=== PATIENT | female | born 1990 | race Native Hawaiian/Other Pacific Islander ===

== ENCOUNTER 2019-03-01 14:13 | Outpatient (CLI) | payer BC ==
[2019-03-01 14:58] LABS: PLATELET COUNT 246 K/uL (152-353)
[2019-03-01 18:30] LABS: POTASSIUM 3.7 mmol/L (3.6-5.2); SODIUM 142 mmol/L (136-145)
== END 2019-03-01 20:43 | disposition home or self-care (01) ==
LOC: LABW 14:13
PROVIDERS: Podiatrist
DX: Z01.812 Encounter for preprocedural laboratory examination (principal)
CPT/HCPCS: 36415; 80053; 84702; 85027

== ENCOUNTER 2023-05-04 16:00 | Outpatient (CLI) | payer BC | END 2023-05-04 19:31 | disposition home or self-care (01) | LOC: RAD 16:00 | PROVIDERS: ATTEND Nurse Practitioner Family | DX: S09.93XA Unspecified injury of face, initial encounter (principal); Y92.89 Other specified places as the place of occurrence of the external cause ==